=== PATIENT | female | born 1970 | race Caucasian/White ===

== ENCOUNTER 2025-02-19 08:26 | Observation (INO) ==
--- NOTE | 2025-02-19 09:00 | Emergency Department Note ---
Impression & Plan Acute exacerbation of chronic obstructive pulmonary disease, Bronchitis, Hypoxia, Elevated troponin I level ED Provider Note NAME: BENITO HUGHES AGE: 54 SEX: F : 1970 ARRIVES VIA: Walk-In INFORMANT: Patient, ED PROVIDER(S): Yifan Saleem DO CHIEF COMPLAINT: Difficulty breathing HPI: The patient is a 54-year-old female who presented to the emergency department for difficulty breathing. The patient started having cough and URI symptoms last . She was seen in urgent care and started on a steroid. The patient denies having any lower extremity swelling or pain. She does complain of chest pain especially with palpation of the chest because of coughing. The patient does use tobacco products. The patient denies having any hemoptysis. ROS: See above HPI for pertinent positives & negatives. A total of 10 systems reviewed and were otherwise negative. PAST MEDICAL HISTORY: See Below PAST SURGICAL HISTORY: See Below FAMILY HISTORY: See Below SOCIAL HISTORY: See Below HOME MEDICATIONS: See Below ALLERGIES: See Below VITALS: See Below PHYSICAL EXAMINATION: GENERAL: Patient is awake alert in no acute distress patient is resting comfortably and showing no signs of anxiety EYES: The conjunctivae are clear. The pupils are round and reactive. EARS, NOSE, MOUTH AND THROAT: The nose is without any evidence of any deformity. NECK: The neck is nontender and supple. RESPIRATORY: Diminished breath sounds are noted throughout with expiratory wheezing. There is mild conversational dyspnea noted. CARDIOVASCULAR: Regular rate and rhythm noted there no murmurs rubs or gallops normal S1 normal S2. GASTROINTESTINAL: The abdomen is soft. Abdomen is nontender. MUSCULOSKELETAL/EXTREMITIES: There is no evidence of gross deformity full range of motion is noted in the hips and shoulders. SKIN: There is no significant pedal edema or calf tenderness elicited. NEUROLOGIC: Patient is awake alert and oriented x3 MEDICAL DECISION MAKING: The patient is a 54-year-old female who presented to the emergency department for chest pain and cough. The patient was not tachycardic. She did have some episodes of hypoxia. The patient's history and physical exam did appear to be more consistent with COPD. She does have a smoking history. The patient was treated in usual fashion with bronchodilator therapy as well as steroids. I discussed the patient's laboratory and radiographic studies with her. She was found to have a slight elevation in her troponin. I feel this would make her a better candidate for inpatient management. I discussed her condition [facility] They have agreed to evaluate the patient in the emergency department for further management and disposition. Triage Nursing notes reviewed. Prior medical records reviewed Vital Signs: reviewed and remarkable for elevated blood pressure and intermittent hypoxia. Differential diagnosis: Reactive airway disease, pneumonia, pneumothorax, COPD, CHF, infections, cardiac ischemia, pulmonary embolism, musculoskeletal, gastrointestinal, as well as other pathologies. ER treatment provided: See below Diagnostics interpreted by me: ECG: EKG was obtained in the emergency department. My interpretation is normal sinus rhythm at 81 bpm. There is no ectopy. There is no acute ST segment abnormalities noted. QTc was 439 ms. Cardiac Monitoring: An order was placed for continuous cardiac monitoring. The monitor shows a rate of 80 bpm with sinus rhythm. Laboratory studies: As stated above and show below. Imaging studies: See below. Radiographic imaging was reviewed by myself Consultation(s): I discussed this case with Lashonda who is [facility]. Past Med/Surg History Problem List (Updated 02/19/25 @ 11:42 by Domonique Myers PA-C) Elevated troponin I level (Acute) Hypoxia (Acute) Bronchitis (Acute) Acute exacerbation of chronic obstructive pulmonary disease (Acute) Medical History (Updated 02/19/25 @ 11:42 by Domonique Myers PA-C) Esophageal reflux Lung nodule Prediabetes Tobacco use disorder Other emphysema Surgical History (Updated 02/19/25 @ 11:42 by Domonique Myers PA-C) History of section x3 H/O: hysterectomy Family History (Updated 02/19/25 @ 11:43 by Domonique Myers PA-C) Other Diabetes Hypertension Stroke Social History (Updated 02/19/25 @ 12:26 by Domonique Myers PA-C) Smoking Status: Current every day smoker Tobacco Type: Cigarettes Cigarettes Per Day: 1.5 ppd; current occupational status: employed 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 [employer] Feels Safe at Home: Yes Allergies Allergies Allergy/AdvReac Type Severity Reaction Status Date / Time No Known Allergies Allergy Unverified 02/19/25 08:35 Home Meds Home Medications Medication Instructions Recorded Confirmed albuterol sulfate 90 mcg/actuation 1 puff inhalation UD PRN sob 02/19/25 02/19/25 aerosol inhaler amoxicillin 875 mg-potassium 1 tab PO BID 02/19/25 02/19/25 clavulanate 125 mg tablet azithromycin 250 mg tablet 250 mg PO UD 02/19/25 02/19/25 prednisone 20 mg tablet 20 mg PO UD 02/19/25 02/19/25 Results & Data (ED) Vital Signs Vital Signs - 24 hr 02/19/25 08:32 02/19/25 08:45 02/19/25 08:45 Temperature 36.6 C Temperature Source Oral Pulse Rate 90 84 Pulse Rate [Apical] 86 Pulse Rhythm [Apical] Regular Pulse Strength [Apical] Normal Respiratory Rate 20 24 Respiratory Effort / Characteristics Non-Labored Spontaneous Respiratory Depth Normal Normal Respiratory Pattern Regular Blood Pressure 145/84 H Blood Pressure [Left Arm] 137/96 Blood Pressure Mean 104 Blood Pressure Mean [Left Arm] 109 Blood Pressure Position [Left Arm] Sitting Pulse Oximetry 92 95 Oxygen Delivery Method Room Air Room Air Sepsis Recent Fever Within 48 Hours No Sepsis New/Unexplained Change in Mental Status N/A Sepsis Action Taken by Nursing No Action Required 02/19/25 09:09 02/19/25 09:09 02/19/25 09:09 Temperature Temperature Source Pulse Rate Pulse Rate [Apical] Pulse Rhythm [Apical] Pulse Strength [Apical] Respiratory Rate Respiratory Effort / Characteristics Respiratory Depth Respiratory Pattern Regular Blood Pressure Blood Pressure [Left Arm] Blood Pressure Mean Blood Pressure Mean [Left Arm] Blood Pressure Position [Left Arm] Pulse Oximetry 94 94 Oxygen Delivery Method Room Air Room Air Sepsis Recent Fever Within 48 Hours Sepsis New/Unexplained Change in Mental Status Sepsis Action Taken by Nursing 02/19/25 10:28 Temperature Temperature Source Pulse Rate Pulse Rate [Apical] 89 Pulse Rhythm [Apical] Regular Pulse Strength [Apical] Normal Respiratory Rate 21 Respiratory Effort / Characteristics Spontaneous Labored Respiratory Depth Normal Respiratory Pattern Regular Blood Pressure Blood Pressure [Left Arm] 115/81 Blood Pressure Mean Blood Pressure Mean [Left Arm] 92 Blood Pressure Position [Left Arm] Sitting Pulse Oximetry 96 Oxygen Delivery Method Room Air Sepsis Recent Fever Within 48 Hours Sepsis New/Unexplained Change in Mental Status Sepsis Action Taken by Correction Medications Current Medication List: was personally reviewed by me Laboratory Data Attestation: I reviewed the patient's lab results. 02/19/25 09:03 02/19/25 09:03 Lab Results 02/19/25 02/19/25 02/19/25 Range/Units 08:56 09:03 11:18 WBC 15.41 H (4.8-10.8) K/ul RBC 5.33 (4.20-5.40) M/uL Hgb 15.9 (12.0-16.0) g/dl Hct 47.7 H (37.0-47.0) % MCV 89.5 (80.0-100.0) fL MCH 29.8 (25.0-34.0) pg MCHC 33.3 (32.0-36.0) g/dL RDW Std Deviation 46.0 (36.4-46.3) fL RDW Coeff of Ye 14.2 (11.5-14.5) % Plt Count 279 (130-400) K/uL MPV 10.4 (9.4-12.4) fL Immature Gran % (Auto) 0.7 % Neut % (Auto) 74.4 % Lymph % (Auto) 18.0 % [place] % (Auto) 6.4 % Eos % (Auto) 0.3 % Baso % (Auto) 0.2 % Neut # (Auto) 11.45 H (1.40-6.50) K/uL Lymph # (Auto) 2.78 (1.20-3.40) K/uL [place] # (Auto) 0.99 H (0.11-0.59) K/uL Eos # (Auto) 0.05 (0.00-0.50) K/uL Baso # (Auto) 0.03 (0.00-0.20) K/uL Immature Gran # (Auto) 0.11 (0.01-0.20) K/uL D-Dimer 280 (0-500) ug/L FEU Sodium 143 (136-145) mmol/L Potassium 3.5 (3.5-5.1) mmol/L Chloride 106 (98-107) mmol/L Carbon Dioxide 29 (21-32) mmol/L Anion Gap 8 (3-11) BUN 15 (6-23) mg/dl Creatinine 0.95 (0.6-1.2) mg/dl Est Cr Clr Drug Dosing 77.7 ml/min eGFR 70.76 BUN/Creatinine Ratio 15.8 (10-20) Glucose 108 H (70-99(Fasting)) mg/dl Calcium 9.6 (8.6-10.3) mg/dl Total Bilirubin 0.4 (0.2-1.0) mg/dl AST 21 (13-39) U/L ALT 27 (7-52) U/L Alkaline Phosphatase 74 (34-104) U/L Troponin I High Sens 29.9 H 24.6 H (0-14) pg/ml Total Protein 7.8 (6.0-8.3) gm/dl Albumin 4.6 (3.4-5.0) gm/dl Globulin 3.2 (2.5-4.0) gm/dl Albumin/Globulin Ratio 1.4 (0.9-2) Lipase 23 (11-82) U/L SARS-CoV-2 (PCR) NEGATIVE (Negative) Influenza Type A (PCR) Negative (Neg) Influenza Type B (PCR) Negative (Neg) RSV (RT-PCR) Negative (Neg) Administered Medications Albuterol (Albut/Ipratrop 3mg/0.5mg Neb 3 Ml Vial) 3 ml NEB QIDR GADIEL; Protocol Stop: 03/21/25 14:59 Last Admin: 02/19/25 14:29 Dose: 3 ml Documented By: MMG Discontinued Medications Albuterol (Albut/Ipratrop 3mg/0.5mg Neb 3 Ml Vial) 3 ml NEB NOW STA; Protocol Stop: 02/19/25 08:46 Last Admin: 02/19/25 09:49 Dose: 3 ml Documented By: [facility] [place] Albuterol (Albut/Ipratrop 3mg/0.5mg Neb 3 Ml Vial) 3 ml NEB NOW STA; Protocol Stop: 02/19/25 10:06 Last Admin: 02/19/25 10:15 Dose: 3 ml Documented By: [facility] [place] Aspirin (Aspirin Chew 324 Mg) 324 mg PO NOW STA Stop: 02/19/25 10:21 Last Admin: 02/19/25 10:31 Dose: 324 mg Documented By: [facility] [place] Ketorolac Tromethamine (Ketorolac Tromethamine 15 Mg/Ml Vial) 10 mg IV NOW ONE Stop: 02/19/25 08:46 Last Admin: 02/19/25 09:49 Dose: 10 mg Documented By: [facility] [place] Methylprednisolone (Methylprednisolone 125 Mg/2 Ml Vial) 125 mg IV NOW STA Stop: 02/19/25 08:46 Last Admin: 02/19/25 09:49 Dose: 125 mg Documented By: [facility] [place] Imaging Data Attestation: I personally reviewed and interpreted this imaging study as follows: My Impression: 1 view chest x-ray was obtained in the emergency department. My interpretation is no free air or definite infiltrate, final report below. Radiologist's Impression: Chest X-Ray 02/19/25 08:45 XR chest 1V portable CLINICAL HISTORY: Chest pain, nonspecific COMPARISON STUDY: None FINDINGS: Heart size and pulmonary vasculature are normal. No consolidation or pleural effusion. No pneumothorax. IMPRESSION: No acute findings. ACT 112: Negative or not required by law. Electronically signed by: Tono Sprague M.D. 02/19/2025 9:48 AM Discharge Plan Visit Data Chief Complaint: Shortness of Breath/Dyspnea Stated Complaint: SOB, CHEST PAIN ED Provider: Yifan Saleem Discharge Problem: Acute exacerbation of chronic obstructive pulmonary disease, Bronchitis, Hypoxia, Elevated troponin I level Patient Disposition: Admitted As Inpatient Condition: Fair Discharge Instructions Interventions: ED Discharge Assessment Last Done: 02/19/25 12:32
[2025-02-19 09:47] LABS: Hematocrit (blood only) 47.7 % (37.0-47.0); Hemoglobin 15.9 g/dl (12.0-16.0); Immature Granulocytes # (auto) 0.11 K/uL (0.01-0.20); Immature Granulocytes % (auto) 0.7 %; Mean Corpuscular Hemoglobin 29.8 pg (25.0-34.0); Mean Corpuscular Volume 89.5 fL (80.0-100.0); Platelet Count 279 K/uL (130-400); RDW Standard Deviation 46.0 fL (36.4-46.3); Red Blood Count 5.33 M/uL (4.20-5.40); White Blood Count 15.41 K/ul (4.8-10.8)
[2025-02-19] MEDS: ALBUT/IPRATROP 3MG/0.5MG NEB 3 ML VIAL NEB STA ×2 (09:49→10:15)
[2025-02-19] MEDS: KETOROLAC TROMETHAMINE 15 MG/ML VIAL IV ONE (09:49)
--- NOTE | 2025-02-19 09:49 | XRay Report ---
XR chest 1V portable CLINICAL HISTORY: Chest pain, nonspecific COMPARISON STUDY: None FINDINGS: Heart size and pulmonary vasculature are normal. No consolidation or pleural effusion. No p neumothorax. IMPRESSION: No acute findings. ACT 112: Negative or not required by law. Electronically signed by: Tono Sprague M.D. 02/19/2025 9:48 AM
[2025-02-19 10:02] LABS: Alanine Aminotransferase 27.0 U/L (7-52); Albumin Globulin Ratio 1.4 (0.9-2); Alkaline Phosphatase 74.0 U/L (34-104); Anion Gap 8.0 (3-11); Bilirubin,Total 0.4 mg/dl (0.2-1.0); Blood Urea Nitrogen 15.0 mg/dl (6-23); Calcium 9.6 mg/dl (8.6-10.3); Carbon Dioxide 29.0 mmol/L (21-32); Chloride 106.0 mmol/L (98-107); Creatinine Clr Calc Pharmacy 77.7 ml/min; Globulin 3.2 gm/dl (2.5-4.0); Glucose 108.0 mg/dl (70-99(Fasting)); Lipase 23.0 U/L (11-82); Potassium 3.5 mmol/L (3.5-5.1); Sodium 143.0 mmol/L (136-145); Total Protein 7.8 gm/dl (6.0-8.3)
[2025-02-19 10:04] LABS: Influenza A virus by PCR Negative (Neg); Influenza B virus by PCR Negative (Neg); SARS CoV2 RNA(COVID-19) Ceph NEGATIVE (Negative)
[2025-02-19] MEDS: ASPIRIN CHEW 324 MG PO STA (10:31)
--- NOTE | 2025-02-19 11:46 | History & Physical Report ---
Date of Service February 19, 2025 Assessment & Plan (1) Acute exacerbation of chronic obstructive pulmonary disease: (2) Elevated troponin I level: (3) Tobacco use disorder: Plan This is a 54 y/o female with current tobacco use, hx emphysema, and other history as outlined below who presents to the ED today with right sided chest discomfort and dyspnea on exertion. Pt was initially managed as an outpatient with oral steroids, then antibiotics added yesterday, but pt has not significantly improved so came to the ED. In the ED, she received IV methylprednisolone 125 mg and DuoNeb and was referred for admission. Her pulseox initially dropped after the neb treatment, and she was transiently placed on O2, but this has improved and she was on room air during my evaluation with sats 90- 92%. She was also noted to have a borderline elevated troponin in the ED, initial was 29.9, repeat was 24.6. EKG personally reviewed and without any acute ischemic changes. #COPD exacerbation - Observe in med surg - IV methylprednisolone 40 mg BID starting tomorrow (received 125 mg in the ED today) - DuoNeb QID scheduled, Q2 hours PRN - Continue azithromycin - Supplemental O2 prn - Mucinex BID - PRN anti-tussives - AM labs - CBC, BMP, lipid panel, A1c (hx prediabetes) #Tobacco use disorder - Smoking cessation counseling provided - Declines nicotine patch at present #Positive troponin - likely demand related to respiratory status - Trend troponin - Repeat EKG in the AM - Monitor on telemetry overnight Pt seen and reviewed with collaborating physician, Dr. Trinidad. Plan of care discussed and as outlined above. Code status: full code DVT prophylaxis: Coleman Myers PA-C History of Present Illness Chief Complaint: wheezing, trouble breathing, chest discomfort Primary Care Provider: Shanti Upton PA-C This is a 54 y/o female with current tobacco use, hx emphysema, and other history as outlined below who presents to the ED today with right sided chest discomfort and dyspnea on exertion. Pt reports she started with cold symptoms on 02/15, initially just sore throat and cough. She was seen at urgent care on 02/16/25 for cough, SOB, congestion. Diagnosed with viral acute bronchitis, given course of prednisone and Proair inhaler. Seen at urgent care again on 02/18/25 (yesterday) due to persistent symptoms despite taking the prednisone and inhaler (used 2-3x), noted to have wheezing and rhonchi with diminished air movement. Given DuoNeb with improvement in air movement, given IV solu-medrol and started on antibiotics with Augmentin and azithromycin. Today, she feels like symptoms are persistent despite all of these medications so she came to the ED for evaluation. Her current symptoms include a cough, intermittently productive, wheezing, chest congestion, and dyspnea on exertion. Appetite has been decreased but she denies N/V/D, [place], dizziness. She has noted some right-sided chest discomfort but she attributes this to coughing. No palpitations, syncope, peripheral edema. She has not check her temperature so unsure if she's had a fever but she has noted chills and sweats. 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 Allergies Allergy/AdvReac Type Severity Reaction Status Date / Time No Known Allergies Allergy Unverified 02/19/25 08:35 Home Medications Medication Instructions Recorded Confirmed Type albuterol sulfate 90 mcg/actuation 1 puff inhalation UD PRN sob 02/19/25 02/19/25 History aerosol inhaler amoxicillin 875 mg-potassium 1 tab PO BID 02/19/25 02/19/25 History clavulanate 125 mg tablet azithromycin 250 mg tablet 250 mg PO UD 02/19/25 02/19/25 History prednisone 20 mg tablet 20 mg PO UD 02/19/25 02/19/25 History Past Med/Surg History Problem List (Updated 02/19/25 @ 11:42 by Domonique Myers PA-C) Elevated troponin I level (Acute) Hypoxia (Acute) Bronchitis (Acute) Acute exacerbation of chronic obstructive pulmonary disease (Acute) Medical History (Updated 02/19/25 @ 11:42 by Domonique Myers PA-C) Esophageal reflux Lung nodule Prediabetes Tobacco use disorder Other emphysema Surgical History (Updated 02/19/25 @ 11:42 by Domonique Myers PA-C) History of section x3 H/O: hysterectomy Family History (Updated 02/19/25 @ 11:43 by Domonique Myers PA-C) Other Diabetes Hypertension Stroke Social History (Updated 02/19/25 @ 12:26 by Domonique Myers PA-C) Smoking Status: Current every day smoker Tobacco Type: Cigarettes Cigarettes Per Day: 1.5 ppd; current occupational status: employed current occupation: bingo cashier at [employer] Feels Safe at Home: Yes Review of Systems Review of Systems: All systems reviewed & are unremarkable except as noted in Subjective Physical Exam Physical Exam: General: awake, alert, NAD HEENT: no scleral icterus, moist oral mucosa Neck: supple, trachea midline Heart: RRR, no M/G/R Lungs: scattered coarse BS and wheezing throughout Abdomen: soft, NT, +BS Extremities: no pedal edema Skin: warm, dry, no rashes Neurologic: Ox3, no confusion or dysarthria, moving all extremities, no focal de ficits Results & Data Results & Data Vital Signs (Past 12 Hours) Vital Signs Temp Pulse Pulse Resp BP BP Pulse Ox 02/19/25 10:28 89 21 115/81 96 02/19/25 09:09 94 02/19/25 09:09 94 02/19/25 08:45 86 24 137/96 95 02/19/25 08:45 84 02/19/25 08:32 36.6 C 90 20 145/84 H 92 O2 Del Method 02/19/25 10:28 Room Air 02/19/25 09:09 Room Air 02/19/25 09:09 Room Air 02/19/25 08:45 Room Air 02/19/25 08:45 02/19/25 08:32 Room Air Laboratory Results Lab Results 02/19/25 02/19/25 Range/Units 08:56 09:03 WBC 15.41 H (4.8-10.8) K/ul RBC 5.33 (4.20-5.40) M/uL Hgb 15.9 (12.0-16.0) g/dl Hct 47.7 H (37.0-47.0) % MCV 89.5 (80.0-100.0) fL MCH 29.8 (25.0-34.0) pg MCHC 33.3 (32.0-36.0) g/dL RDW Std Deviation 46.0 (36.4-46.3) fL RDW Coeff of Ye 14.2 (11.5-14.5) % Plt Count 279 (130-400) K/uL MPV 10.4 (9.4-12.4) fL Immature Gran % (Auto) 0.7 % Neut % (Auto) 74.4 % Lymph % (Auto) 18.0 % [place] % (Auto) 6.4 % Eos % (Auto) 0.3 % Baso % (Auto) 0.2 % Neut # (Auto) 11.45 H (1.40-6.50) K/uL Lymph # (Auto) 2.78 (1.20-3.40) K/uL [place] # (Auto) 0.99 H (0.11-0.59) K/uL Eos # (Auto) 0.05 (0.00-0.50) K/uL Baso # (Auto) 0.03 (0.00-0.20) K/uL Immature Gran # (Auto) 0.11 (0.01-0.20) K/uL D-Dimer 280 (0-500) ug/L FEU Sodium 143 (136-145) mmol/L Potassium 3.5 (3.5-5.1) mmol/L Chloride 106 (98-107) mmol/L Carbon Dioxide 29 (21-32) mmol/L Anion Gap 8 (3-11) BUN 15 (6-23) mg/dl Creatinine 0.95 (0.6-1.2) mg/dl Est Cr Clr Drug Dosing 77.7 ml/min eGFR 70.76 BUN/Creatinine Ratio 15.8 (10-20) Glucose 108 H (70-99(Fasting)) mg/dl Calcium 9.6 (8.6-10.3) mg/dl Total Bilirubin 0.4 (0.2-1.0) mg/dl AST 21 (13-39) U/L ALT 27 (7-52) U/L Alkaline Phosphatase 74 (34-104) U/L Troponin I High Sens 29.9 H (0-14) pg/ml Total Protein 7.8 (6.0-8.3) gm/dl Albumin 4.6 (3.4-5.0) gm/dl Globulin 3.2 (2.5-4.0) gm/dl Albumin/Globulin Ratio 1.4 (0.9-2) Lipase 23 (11-82) U/L SARS-CoV-2 (PCR) NEGATIVE (Negative) Influenza Type A (PCR) Negative (Neg) Influenza Type B (PCR) Negative (Neg) RSV (RT-PCR) Negative (Neg) Diagnostic Findings Chest X-Ray 02/19/25 08:45 XR chest 1V portable CLINICAL HISTORY: Chest pain, nonspecific COMPARISON STUDY: None FINDINGS: Heart size and pulmonary vasculature are normal. No consolidation or pleural effusion. No pneumothorax. IMPRESSION: No acute findings. ACT 112: Negative or not required by law. Electronically signed by: Tono Sprague M.D. 02/19/2025 9:48 AM Medications Administered Discontinued Medications Albuterol (Albut/Ipratrop 3mg/0.5mg Neb 3 Ml Vial) 3 ml NEB NOW STA; Protocol Stop: 02/19/25 08:46 Last Admin: 02/19/25 09:49 Dose: 3 ml Documented By: will Albuterol (Albut/Ipratrop 3mg/0.5mg Neb 3 Ml Vial) 3 ml NEB NOW STA; Protocol Stop: 02/19/25 10:06 Last Admin: 02/19/25 10:15 Dose: 3 ml Documented By: will Aspirin (Aspirin Chew 324 Mg) 324 mg PO NOW STA Stop: 02/19/25 10:21 Last Admin: 02/19/25 10:31 Dose: 324 mg Documented By: will Ketorolac Tromethamine (Ketorolac Tromethamine 15 Mg/Ml Vial) 10 mg IV NOW ONE Stop: 02/19/25 08:46 Last Admin: 02/19/25 09:49 Dose: 10 mg Documented By: will Methylprednisolone (Methylprednisolone 125 Mg/2 Ml Vial) 125 mg IV NOW STA Stop: 02/19/25 08:46 Last Admin: 02/19/25 09:49 Dose: 125 mg Documented By: [facility] [place] Supervising Physician Co-Signing Physician Notes Attending addendum: The patient was seen and examined in emergency room in presence of the family members She has been complaining of increasing shortness of breath with wheezing which has been going on for the last few days and did not improve with outpatient oral steroid and also azithromycin Denies any fever and/or chills and complains today of some lower lateral chest pain secondary to cough On examination Lying in bed with minimal distress due to shortness of breath Blood pressure on the higher side at 142/103 but afebrile Has been saturating normally on room air Chest examination showed bilateral decreasing breath sounds with wheezing and minimal bibasilar crackles HeartS1-S2, regular Abdomenbenign Extremitiesnegative for any edema Her admission labs, EKG and imaging studies reviewed # COPD exacerbation without any evidence of pneumonia but seems to be infective Will continue with intravenous Solu-Medrol and finish the course of azithromycin, nebulized bronchodilators and incentive spirometer She was strongly advised to quit smoking Agree with assessment and plan as outlined above by Shahana Myers PA-C and take the full responsibility of care in the hospital Dr Mateo Trinidad
[2025-02-19] MEDS ORDERED: ACETAMINOPHEN 325 MG TAB PO PRN (12:31)
[2025-02-19] MEDS: ALBUT/IPRATROP 3MG/0.5MG NEB 3 ML VIAL NEB SCH (14:29)
[2025-02-19] MEDS: AZITHROMYCIN 250 MG in DEXTROSE 5% 250 ML IV SCH (19:40)
[2025-02-19] MEDS: guaiFENesin 600 MG TABCR PO SCH (22:07)
[2025-02-20 07:11] LABS: Cholesterol 126.0 mg/dl (0-200); HDL Cholesterol 51.0 mg/dl; Triglycerides 100.0 mg/dl (0-150)
[2025-02-20] MEDS: ENOXAPARIN INJ 40 MG/0.4 ML SYR SQ SCH (07:34)
[2025-02-20] MEDS: DEXTROMETHORPHAN POLYMR COMPLX 30MG/5 ML BTL PO PRN (07:39)
[2025-02-20] MEDS ORDERED: methylPREDNISolone 10 mg/mL (For Ped Dose < 7mg) IV SCH (09:00)
[2025-02-20 09:32] LABS: Hemoglobin A1C 6.1 % (4.5-5.6)
[2025-02-20] MEDS: FORMOTEROL 20 MCG/2 ML VIAL NEB SCH (11:27)
[2025-02-20] MEDS: BUDESONIDE 0.5 MG/2 ML VIAL (PULMICORT) NEB SCH (11:27)
--- NOTE | 2025-02-20 13:37 | Hospitalist Progress Note ---
Date of Service February 20, 2025 Assessment & Plan (1) Acute exacerbation of chronic obstructive pulmonary disease: (2) Elevated troponin I level: (3) Tobacco use disorder: Plan This is a 54 y/o female with current tobacco use, hx emphysema, and other history as outlined below who presents to the ED today with right sided chest discomfort and dyspnea on exertion. Pt was initially managed as an outpatient with oral steroids, then antibiotics added yesterday, but pt has not significantly improved so came to the ED. In the ED, she received IV methylprednisolone 125 mg and DuoNeb and was referred for admission. #COPD exacerbation Presented with shortness of breath Chest x-ray on admission did not show any acute finding History of tobacco use disorder; has not been officially diagnosed with COPD. Started on budesonide and formoterol nebs Continue IV steroids Continue DuoNebs, azithromycin Wean off oxygen as tolerated Two-step oxygen evaluation at discharge #Tobacco use disorder - Smoking cessation counseling provided - Declines nicotine patch at present #Elevated high sensitive troponin of undetermined significance in setting of COPD exacerbation High sensitive troponin elevated to 29.9 on admission; EKG on admission shows normal sinus rhythm; no ST or T wave changes. Monitor on telemetry Follow-up with PCP for echocardiogram Lovenox Full code Please note the above document was generated using voice recognition software. It may contain grammatical, syntax or spelling errors. Any formal questions or concerns about the content, text or information contained within the body of this dictation should be directly addressed to the provider for clarification Admission and Anticipated Discharge Date Admission Date: February 19, 2025 Subjective Patient seen and examined at bedside. She still continues to report shortness of breath and wheeze. She is requiring supplemental oxygen as well. Review of Systems Review of Systems: All systems reviewed & are unremarkable except as noted in Subjective Physical Exam Physical Exam: General: awake, alert, NAD HEENT: no scleral icterus, moist oral mucosa Neck: supple, trachea midline Heart: RRR, no M/G/R Lungs: Bilateral decreased air entry. Occasional wheezet Abdomen: soft, NT, +BS Extremities: no pedal edema Skin: warm, dry, no rashes Neurologic: Ox3, no confusion or dysarthria, moving all extremities, no focal deficits Results & Data Results & Data Vital Signs (Past 12 Hours) Vital Signs Temp Pulse Pulse Resp BP Pulse Ox O2 Del Method 02/20/25 11:32 36.6 C 73 18 108/73 92 Room Air 02/20/25 11:11 75 16 92 Room Air 02/20/25 07:58 Nasal Cannula 02/20/25 07:49 77 16 94 Nasal Cannula 02/20/25 07:25 36.5 C 66 18 145/83 H 94 Nasal Cannula 02/20/25 05:29 72 02/20/25 02:53 36.6 C 74 16 115/70 96 Nasal Cannula 02/20/25 02:25 78 O2 Flow Rate 02/20/25 11:32 02/20/25 11:11 02/20/25 07:58 2 02/20/25 07:49 1 02/20/25 07:25 1 02/20/25 05:29 02/20/25 02:53 2 02/20/25 02:25
[2025-02-21 07:11] LABS: Hematocrit (blood only) 45.7 % (37.0-47.0); Hemoglobin 14.7 g/dl (12.0-16.0); Immature Granulocytes # (auto) 0.12 K/uL (0.01-0.20); Immature Granulocytes % (auto) 0.9 %; Mean Corpuscular Hemoglobin 28.4 pg (25.0-34.0); Mean Corpuscular Volume 88.4 fL (80.0-100.0); Platelet Count 259 K/uL (130-400); RDW Standard Deviation 45.1 fL (36.4-46.3); Red Blood Count 5.17 M/uL (4.20-5.40); White Blood Count 12.79 K/ul (4.8-10.8)
[2025-02-21 07:30] LABS: Anion Gap 7.0 (3-11); Blood Urea Nitrogen 16.0 mg/dl (6-23); Calcium 8.8 mg/dl (8.6-10.3); Carbon Dioxide 26.0 mmol/L (21-32); Chloride 108.0 mmol/L (98-107); Creatinine Clr Calc Pharmacy 90.7 ml/min; Glucose 105.0 mg/dl (70-99(Fasting)); Potassium 4.4 mmol/L (3.5-5.1); Sodium 141.0 mmol/L (136-145)
--- NOTE | 2025-02-21 10:44 | Discharge Summary ---
Date of Service February 21, 2025 Admission HPI Per Admitting Provider This is a 54 y/o female with current tobacco use, hx emphysema, and other history as outlined below who presents to the ED today with right sided chest discomfort and dyspnea on exertion. Pt reports she started with cold symptoms on 02/15, initially just sore throat and cough. She was seen at urgent care on 02/16/25 for cough, SOB, congestion. Diagnosed with viral acute bronchitis, given course of prednisone and Proair inhaler. Seen at urgent care again on 02/18/25 (yesterday) due to persistent symptoms despite taking the prednisone and inhaler (used 2-3x), noted to have wheezing and rhonchi with diminished air movement. Given DuoNeb with improvement in air movement, given IV solu-medrol and started on antibiotics with Augmentin and azithromycin. Today, she feels like symptoms are persistent despite all of these medications so she came to the ED for evaluation. Her current symptoms include a cough, intermittently productive, wheezing, chest congestion, and dyspnea on exertion. Appetite has been decreas ed but she denies N/V/D, DELVALLE, dizziness. She has noted some right-sided chest discomfort but she attributes this to coughing. No palpitations, syncope, peripheral edema. She has not check her temperature so unsure if she's had a fever but she has noted chills and sweats. 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 Admission Exam Per Admitting Provider General: awake, alert, NAD HEENT: no scleral icterus, moist oral mucosa Neck: supple, trachea midline Heart: RRR, no M/G/R Lungs: scattered coarse BS and wheezing throughout Abdomen: soft, NT, +BS Extremities: no pedal edema Skin: warm, dry, no rashes Neurologic: Ox3, no confusion or dysarthria, moving all extremities, no focal defic Principal Diagnosis COPD exacerbation Discharge Exam General: awake, alert, NAD HEENT: no scleral icterus, moist oral mucosa Neck: supple, trachea midline Heart: RRR, no M/G/R Lungs: Bilateral clear breath sound Abdomen: soft, NT, +BS Extremities: no pedal edema Skin: warm, dry, no rashes Neurologic: Ox3, no confusion or dysarthria, moving all extremities, no focal deficits Discharge Data Allergies Allergy/AdvReac Type Severity Reaction Status Date / Time No Known Allergies Allergy Unverified 02/19/25 08:35 Consultations 02/19/25 11:39 ED Decision to Admit Stat Hospital Course (1) Acute exacerbation of chronic obstructive pulmonary disease: (2) Elevated troponin I level: (3) Tobacco use disorder: Plan This is a 54 y/o female with current tobacco use, hx emphysema, and other history as outlined below who presents to the ED today with right sided chest discomfort and dyspnea on exertion. Pt was initially managed as an outpatient with oral steroids, then antibiotics added yesterday, but pt has not significantly improved so came to the ED. In the ED, she received IV methylprednisolone 125 mg and DuoNeb and was referred for admission. #COPD exacerbation #Tobacco use disorder #Elevated high sensitive troponin of undetermined significance in setting of COPD exacerbation Presented with shortness of breath Chest x-ray on admission did not show any acute finding History of tobacco use disorder; has not been officially diagnosed with COPD. On physical examination; patient was found to have bilateral wheeze with decreased air entry. Patient was admitted to medical floor; was started on budesonide, formoterol nebs, [id number] DuoNebs, azithromycin and steroids/supplemental oxygen. Patient reported improvement in the symptoms and her oxygen was weaned off. At the time of the discharge, patient was given prescription for inhalers, steroids and azithromycin to complete the course. Patient to follow-up with her primary care doctor to discuss tobacco cessation method, pulmonology referral and echocardiogram as outpatient. Please note the above document was generated using voice recognition software. It may contain grammatical, syntax or spelling errors. Any formal questions or concerns about the content, text or information contained within the body of this dictation should be directly addressed to the provider for clarification Total Time Total Time Spent Total Time Spent (In Minutes): 45 Total Time Includes: Examination of the Patient, Discharge Planning, Medication Reconciliation, Communication With Other Providers and Other Discharge Plan Discharge Items Patient Disposition: Home - Self-Care Reason For Visit: COPD EXACERBATION Discharge Diagnosis: COPD excerebation Condition on Discharge: Fair Activity: Resume your previous activity Non-emergency contact: Primary Care Provider Call non-emergency contact if: you have any medication questions and your symptoms worsen Follow-up/Referrals: Won,Shanti, PA-C [Outside Practitioners] - (Date & Time 02/27/2025 9:00 AM Provider: Shanti Upton PA-C [facility]) Diet: Regular Addtl Attending Provider Instructions: You were admitted to the hospital with COPD exacerbation. You were treated with breathing treatments, oxygen, steroids during the hospitalization. You are prescribed following medication Take Azithromycin 250 mg once a day for 2 days Take Prednisone 40 mg once a day for 3 days Take Mucinex 600 mg twice a day for 5 days You have been prescribed inhalers that you need to use daily for COPD. You have been prescribed Breo Ellipta once a day and Spiriva once a day. You have appointment with your primary care doctor set up on February 27, 2025. Please discuss regarding prescribing Chantix for smoking sensation. Also discussed regarding referral to pulmonology. Pending Studies at Discharge: No Stand-Alone Forms: My [facility], Smoking Cessation Medications and DC Order Prescriptions: New guaifenesin [Mucinex] 600 mg Tablet Extended Release 12hr 600 mg PO Q12 5 Days Qty: 10 0RF prednisone 20 mg tablet 40 mg PO DAILY 3 Days Qty: 6 0RF azithromycin 250 mg tablet 250 mg PO DAILY 2 Days Qty: 2 0RF fluticasone furoate-vilanterol [Breo Ellipta] 200-25 mcg/dose blister with device 1 inh inhalation DAILY Qty: 60 0RF Spiriva Respimat 2.5 mcg/actuation mist 2 inh inhalation DAILY Qty: 4 0RF Continued albuterol sulfate 90 mcg/actuation HFA aerosol inhaler 1 puff INHALATION UD PRN (Reason: sob) Discontinued azithromycin 250 mg tablet 250 mg PO UD prednisone 20 mg tablet 20 mg PO UD amoxicillin-pot clavulanate 875-125 mg tablet 1 tab PO BID Discharge Orders: Discharge Order (Routine); Ordered 02/21/25 Ordered By: Chon Lomeli/Other Patient Handouts: Prediabetes, 5 Steps for Eating Healthier Admission Data Admit Date/Time: 02/19/25 11:57 Attending Provider: Chon Bales Admit Provider: Santana Trinidad Primary Care Provider: PCP,NO Other Providers: Santana Trinidad
[2025-02-21 11:37] VITALS: BP 144/84; TEMP 97.3
[2025-02-21 15:37] VITALS: RESP 18; O2SAT 89
[2025-02-21 15:53] VITALS: PULSE 101
--- NOTE | 2025-02-22 16:34 | Electrocardiogram Report ---
Test Reason : Blood Pressure : */* mmHG Vent. Rate : 66 BPM Atrial Rate : 66 BPM P-R Int : 136 ms QRS Dur : 82 ms QT Int : 438 ms P-R-T Axes : 77 66 69 degrees QTcB Int : 459 ms Normal sinus rhythm Normal ECG When compared with ECG of 19-Feb-2025 08:52, (unconfirmed) No significant change was found Confirmed by David Contreras ([id number]) on 02/22/2025 4:33:37 PM Referred By: REFERRED SELF Confirmed By: David Contreras
--- NOTE | 2025-02-23 15:44 | Electrocardiogram Report ---
Test Reason : Blood Pressure : */* mmHG Vent. Rate : 81 BPM Atrial Rate : 81 BPM P-R Int : 132 ms QRS Dur : 76 ms QT Int : 378 ms P-R-T Axes : 66 60 72 degrees QTcB Int : 439 ms Normal sinus rhythm Normal ECG No previous ECGs available Confirmed by David Contreras ([id number]) on 02/23/2025 3:44:21 PM Referred By: REFERRED SELF Confirmed By: David Contreras
== END 2025-02-21 16:09 | disposition home or self-care (01) ==
LOC: ED 08:26 → EDINP 08:26 → SUATTDRO 11:57 → 2W 20:36